=== PATIENT | male | born 1990 | race Two or more races ===

== ENCOUNTER 2020-04-06 12:02 | Emergency (ER) | payer MEDICAID, OTHER ==
[~2020-04-06] VITALS: Ht 172.7 cm; Wt 89.8 kg
[2020-04-06 14:35] VITALS: BP 125/86
[2020-04-06] MEDS ORDERED: LIDOCAINE 1% HCL (LOCAL ANESTH.) INJ 20ML MDV IJ ONE (17:15)
== END 2020-04-06 18:18 | disposition home or self-care (01) ==
LOC: ER 12:02
DX: S61.213A Laceration without foreign body of left middle finger without damage to nail, initial encounter (principal); X58.XXXA Exposure to other specified factors, initial encounter; Y93.89 Activity, other specified; Y92.89 Other specified places as the place of occurrence of the external cause; Y99.8 Other external cause status
CPT/HCPCS: 12001; 73130; 99283; J2001